=== PATIENT | female | born 2000 | race Hispanic/Latino ===

== ENCOUNTER 2020-11-06 16:50 | Emergency (ER) | payer OTHER, BC ==
[2020-11-06] MEDS ORDERED: Lidocaine 1% (PF) 30 ML VIAL ONE (17:05)
[2020-11-06] MEDS ORDERED: Boostrix 0.5 ML (Tdap) VIAL ONE (17:35)
[2020-11-06] MEDS ORDERED: Bacitracin 1 PK ONE (17:35)
== END 2020-11-06 17:57 | disposition home or self-care (01) ==
LOC: NAV ERS 16:50
DX: S61.213A Laceration without foreign body of left middle finger without damage to nail, initial encounter (principal); W26.9XXA Contact with unspecified sharp object(s), initial encounter
CPT/HCPCS: 12001; 90715; J2001

== ENCOUNTER 2020-11-13 09:33 | Emergency (ER) | payer BC, OTHER | END 2020-11-13 10:05 | disposition home or self-care (01) | LOC: NAV ERS 09:33 | DX: S61.217D Laceration without foreign body of left little finger without damage to nail, subsequent encounter (principal) ==

== ENCOUNTER 2025-03-29 21:40 | Emergency (ER) | payer BC ==
[2025-03-29] MEDS ORDERED: Ondansetron PF 4 MG/2 ML Vial ONE (22:03)
[2025-03-29 22:26] LABS: Glucose, Urine (Dipstick) Negative (Negative); Leukocyte Negative (Negative); Protein, Urine (Dipstick) 100 mg/dL (Neg-Trace); Specific Gravity, Urine Greater/Equal 1.030 (1.005-1.030)
[2025-03-29 22:30] LABS: Hematocrit 37.6 % (36.0-47.0); Hemoglobin 13.6 g/dL (12.0-16.0); Mean Corpuscular Hemoglobin 29.4 pg (27.0-31.0); Mean Corpuscular Volume 81.4 fl (78.0-98.0); Platelet Count 334 10x3/uL (130-400); Red Blood Cell (RBC) Count 4.62 mill/uL (4.20-5.40); White Blood Cell (WBC) Count 13.3 10x3/uL (4.8-10.8)
[2025-03-29 22:34] LABS: CAUTI Indications for Culture Dysuria,urgency,freq
[2025-03-29 22:35] LABS: Bacteria/HPF 2+ HPF (None Seen)
[2025-03-29 22:36] LABS: Urine Culture Reflex Yes Yes
[2025-03-29 22:38] LABS: ALT (SGPT) 9 U/L (Less than 34); AST (SGOT) 18 U/L (11-34); Albumin 4.3 g/dL (3.1-4.5); Alkaline Phosphatase 61 U/L (40-110); Anion Gap 17 mmol/L (10-20); BUN (Urea Nitrogen) 8 mg/dL (7.0-18.7); Bilirubin, Total 0.6 mg/dL (0.3-1.2); Calc. Creatinine Clearance 0 mL/min (70-130); Calcium 10.0 mg/dL (7.8-10.44); Carbon Dioxide 21 mmol/L (22-29); Chloride 103 mmol/L (98-107); Globulin 4.0 g/dL (2.4-3.5); Glucose 92 mg/dL (70-105); Lipase 31 U/L (8-78); Potassium 3.4 mmol/L (3.5-5.1); Sodium 138 mmol/L (136-145)
[2025-03-29 22:42] LABS: MDiff Complete? YES; Platelet Adequacy Comment Appears Adequate
== END 2025-03-29 23:12 | disposition home or self-care (01) ==
LOC: NAV ERS 21:40
DX: R11.2 Nausea with vomiting, unspecified (principal)
CPT/HCPCS: 80053; 81001; 83690; 85025; 87077; 87086; 87186; 96361; 96374; J2405; J7030